=== PATIENT | female | born 1955 | race Caucasian/White ===

== ENCOUNTER 2022-04-09 01:14 | Emergency (ER) | payer MEDICARE ==
[2022-04-09] MEDS ORDERED: HYDROcodone/Acetaminophen 5/325 mg Tablet ONE (02:06)
[2022-04-09 02:17] LABS: #Eosinphils 0.1 10x3/uL (0.0-0.5); #Monocytes 0.6 10x3/uL (0.0-1.1); #Neutrophils 5.4 10x3/uL (1.5-8.4); %Basophils 0.5 % (0.0-2.0); %Eosinophils 0.8 % (0.0-6.0); %Lymphocytes 20.1 % (18.0-47.0); %Monocytes 7.3 % (0.0-10.0); Hemoglobin 10.1 g/dL (12.0-15.5); Mean Corpuscular HGB CONC 34.2 g/dL (32.0-36.0); Mean Corpuscular Hemoglobin 31.8 pg (27.0-33.0); Mean Corpuscular Volume 92.8 fl (81.6-98.3); Mean Platelet Volume 9.7 fl (7.4-10.4); Platelet Count 301 10x3/uL (150-450); RBC Distribution Width 12.7 % (11.5-14.5); Red Blood Cell (RBC) Count 3.18 10x6/uL (3.90-5.03); White Blood Cell (WBC) Count 7.5 10x3/uL (3.5-10.5)
[2022-04-09 02:34] LABS: ALT (SGPT) 17 U/L (8-55); AST (SGOT) 13 U/L (5-34); Albumin 3.4 g/dL (3.4-4.8); Alkaline Phosphatase 64 U/L (40-110); Anion Gap 13 mmol/L (10-20); BUN (Urea Nitrogen) 9 mg/dL (9.8-20.1); Bilirubin, Total 0.3 mg/dL (0.2-1.2); Calc. Creatinine Clearance 0 mL/min (70-130); Calcium 9.5 mg/dL (7.8-10.44); Carbon Dioxide 30 mmol/L (23-31); Chloride 99 mmol/L (98-107); Estimated GFR 78; Glucose 149 mg/dL (80-115); Potassium 3.1 mmol/L (3.5-5.1); Protein, Total 6.4 g/dL (5.8-8.1); Sodium 139 mmol/L (136-145)
== END 2022-04-09 05:06 | disposition home or self-care (01) ==
LOC: CSHERS 01:14
DX: M71.21 Synovial cyst of popliteal space [Baker], right knee (principal); J44.9 Chronic obstructive pulmonary disease, unspecified; I11.0 Hypertensive heart disease with heart failure; I50.9 Heart failure, unspecified; Z79.82 Long term (current) use of aspirin
CPT/HCPCS: 36415; 80053; 83880; 84145; 85025; 85652; 86140

== ENCOUNTER 2024-01-03 19:55 | Emergency (ER) | payer MEDICARE ==
[2024-01-03 21:51] LABS: #Basophils 0.01 10x3/uL (0.0-0.2); #Monocytes 0.23 10x3/uL (0.0-1.1); #Neutrophils 5.52 10x3/uL (1.5-8.4); %Basophils 0.1 % (0.0-2.0); %Monocytes 3.4 % (0.0-10.0); %Neutrophils 82.1 % (40.0-75.0); Hematocrit 33.6 % (34.9-44.5); Hemoglobin 11.1 g/dL (12.0-15.5); Mean Corpuscular Hemoglobin 30.7 pg (27.0-33.0); Mean Corpuscular Volume 93.1 fL (81.6-98.3); Mean Platelet Volume 9.9 fL (7.4-10.4); Platelet Count 254 10x3/uL (150-450); RBC Distribution Width 12.8 % (11.5-14.5); Red Blood Cell (RBC) Count 3.61 10x6/uL (3.90-5.03); White Blood Cell (WBC) Count 6.7 10x3/uL (3.5-10.5)
[2024-01-03 22:07] LABS: ALT (SGPT) 16 U/L (8-55); AST (SGOT) 13 U/L (5-34); Albumin 3.3 g/dL (3.4-4.8); Alkaline Phosphatase 46 U/L (40-110); Anion Gap 12 mmol/L (10-20); BUN (Urea Nitrogen) 15 mg/dL (9.8-20.1); Bilirubin, Total 0.3 mg/dL (0.2-1.2); Calc. Creatinine Clearance 0 mL/min (70-130); Calcium 9.4 mg/dL (7.8-10.44); Carbon Dioxide 28 mmol/L (23-31); Chloride 100 mmol/L (98-107); Estimated GFR 64; Globulin 2.8 g/dL (2.4-3.5); Glucose 106 mg/dL (80-115); Potassium 4.5 mmol/L (3.5-5.1); Protein, Total 6.1 g/dL (5.8-8.1); Sodium 135 mmol/L (136-145)
== END 2024-01-03 22:31 | disposition home or self-care (01) ==
LOC: CSHERS 19:55
DX: J44.89 Other specified chronic obstructive pulmonary disease (principal); I11.0 Hypertensive heart disease with heart failure; I50.9 Heart failure, unspecified
CPT/HCPCS: 36415; 71045; 80053; 85025; 87428

== ENCOUNTER 2024-02-06 10:00 | Emergency (ER) | payer MEDICAID, MEDICARE | END 2024-02-06 11:20 | disposition home or self-care (01) | LOC: CSHERS 10:00 | DX: B34.9 Viral infection, unspecified (principal); I11.0 Hypertensive heart disease with heart failure; I50.9 Heart failure, unspecified; J44.9 Chronic obstructive pulmonary disease, unspecified; Z55.0 Illiteracy and low-level literacy; Z79.82 Long term (current) use of aspirin | CPT/HCPCS: 71045; 93005 ==

== ENCOUNTER 2025-01-13 21:24 | Inpatient (IN) | payer OTHER, MEDICAID ==
[2025-01-13 22:45] LABS: Glucose, Urine (Dipstick) 50 mg/dL (Negative); Leukocyte Negative (Negative); Protein, Urine (Dipstick) 30 mg/dl (Neg-Trace); Specific Gravity, Urine 1.015 (1.005-1.030)
[2025-01-13 23:01] LABS: Bacteria/HPF Rare-Few HPF (None Seen); CAUTI Indications for Culture Pelvic or flank pain; RBC/HPF 0-3 HPF (0-3); WBC/HPF 0-3 HPF (0-3)
[2025-01-13 23:02] LABS: Mucous/LPF 1+ LPF (<2+)
[2025-01-13 23:02] LABS: #Basophils Less than 0.03 10x3/uL (0.0-0.2); #Eosinophils 0.10 10x3/uL (0.0-0.5); #Monocytes 1.05 10x3/uL (0.0-1.1); #Neutrophils 11.44 10x3/uL (1.5-8.4); %Basophils 0.1 % (0.0-2.0); %Eosinophils 0.7 % (0.0-6.0); %Lymphocytes 8.4 % (18.0-47.0); %Monocytes 7.6 % (0.0-10.0); %Neutrophils 82.8 % (40.0-75.0); Hematocrit 35.9 % (34.9-44.5); Hemoglobin 11.9 g/dL (12.0-15.5); Mean Corpuscular Hemoglobin 30.7 pg (27.0-33.0); Mean Corpuscular Volume 92.5 fL (81.6-98.3); Platelet Count 317 10x3/uL (150-450); Red Blood Cell (RBC) Count 3.88 10x6/uL (3.90-5.03); White Blood Cell (WBC) Count 13.82 10x3/uL (3.5-10.5)
[2025-01-13 23:03] LABS: Urine Culture Reflex No No
[2025-01-13] MEDS ORDERED: Droperidol 5 MG/2 ML VIAL ONE (23:11)
[2025-01-13 23:15] LABS: ALT (SGPT) 8 U/L (Less than 34); AST (SGOT) 25 U/L (11-34); Albumin 3.0 g/dL (3.1-4.5); Alkaline Phosphatase 81 U/L (40-110); Anion Gap 13 mmol/L (10-20); BUN (Urea Nitrogen) 12 mg/dL (9.8-20.1); Bilirubin, Total 0.6 mg/dL (0.3-1.2); Calc. Creatinine Clearance 0 mL/min (70-130); Calcium 8.9 mg/dL (7.8-10.44); Carbon Dioxide 26 mmol/L (23-31); Chloride 97 mmol/L (98-107); Globulin 3.5 g/dL (2.4-3.5); Glucose 164 mg/dL (80-115); Lipase 10 U/L (8-78); Potassium 4.3 mmol/L (3.5-5.1); Sodium 132 mmol/L (136-145)
[2025-01-14] MEDS ORDERED: Ondansetron PF 4 MG/2 ML Vial IVP PRN (01:10)
[2025-01-14] MEDS ORDERED: Albuterol 2.5 MG (3 mL) NEB NEB PRN (01:42)
[2025-01-14 01:46] VITALS: BMI 36.1
[2025-01-14] MEDS: 1/2 NS w/Potassium 20 mEq 1,000 ML IV SCH (03:34)
[2025-01-14 04:23] LABS: #Basophils Less than 0.03 10x3/uL (0.0-0.2); #Eosinophils 0.09 10x3/uL (0.0-0.5); #Monocytes 0.83 10x3/uL (0.0-1.1); #Neutrophils 7.31 10x3/uL (1.5-8.4); %Basophils 0.2 % (0.0-2.0); %Eosinophils 0.9 % (0.0-6.0); %Lymphocytes 15.2 % (18.0-47.0); %Monocytes 8.5 % (0.0-10.0); %Neutrophils 75.0 % (40.0-75.0); Hematocrit 34.1 % (34.9-44.5); Hemoglobin 11.4 g/dL (12.0-15.5); Mean Corpuscular Hemoglobin 31.2 pg (27.0-33.0); Mean Corpuscular Volume 93.4 fL (81.6-98.3); Platelet Count 277 10x3/uL (150-450); Red Blood Cell (RBC) Count 3.65 10x6/uL (3.90-5.03); White Blood Cell (WBC) Count 9.75 10x3/uL (3.5-10.5)
[2025-01-14 04:38] LABS: Anion Gap 12 mmol/L (10-20); BUN (Urea Nitrogen) 12 mg/dL (9.8-20.1); Calc. Creatinine Clearance 106 mL/min (70-130); Calcium 9.0 mg/dL (7.8-10.44); Carbon Dioxide 28 mmol/L (23-31); Chloride 101 mmol/L (98-107); Glucose 116 mg/dL (80-115); Magnesium 2.0 mg/dL (1.6-2.6); Potassium 4.7 mmol/L (3.5-5.1); Sodium 136 mmol/L (136-145)
[2025-01-14] MEDS: Enoxaparin 40 MG (0.4 mL) SYRINGE SC SCH (08:46)
[2025-01-14] MEDS: Droperidol 5 MG/2 ML VIAL SLOW IVP PRN (08:47)
[2025-01-14] MEDS: Metoprolol Tartrate 5 MG (5 mL) VIAL IVP SCH (08:49)
[2025-01-14] MEDS: Furosemide 20 MG (2 mL) VIAL SLOW IVP SCH (10:20)
[2025-01-15 08:29] LABS: #Basophils Less than 0.03 10x3/uL (0.0-0.2); #Eosinophils 0.17 10x3/uL (0.0-0.5); #Monocytes 0.59 10x3/uL (0.0-1.1); #Neutrophils 4.32 10x3/uL (1.5-8.4); %Basophils 0.2 % (0.0-2.0); %Eosinophils 2.6 % (0.0-6.0); %Lymphocytes 22.5 % (18.0-47.0); %Monocytes 9.0 % (0.0-10.0); %Neutrophils 65.5 % (40.0-75.0); Hematocrit 33.8 % (34.9-44.5); Hemoglobin 11.2 g/dL (12.0-15.5); Mean Corpuscular Hemoglobin 31.1 pg (27.0-33.0); Mean Corpuscular Volume 93.9 fL (81.6-98.3); Platelet Count 264 10x3/uL (150-450); Red Blood Cell (RBC) Count 3.60 10x6/uL (3.90-5.03); White Blood Cell (WBC) Count 6.58 10x3/uL (3.5-10.5)
[2025-01-15 08:49] LABS: Anion Gap 13 mmol/L (10-20); BUN (Urea Nitrogen) 12 mg/dL (9.8-20.1); Calc. Creatinine Clearance 90 mL/min (70-130); Calcium 9.1 mg/dL (7.8-10.44); Carbon Dioxide 28 mmol/L (23-31); Chloride 100 mmol/L (98-107); Glucose 80 mg/dL (80-115); Potassium 4.3 mmol/L (3.5-5.1); Sodium 137 mmol/L (136-145)
[2025-01-15] MEDS: Furosemide 20 MG (2 mL) VIAL SLOW IVP SCH (08:57)
[2025-01-15] MEDS ORDERED: clonazePAM 1 MG TAB PO PRN (13:39)
[2025-01-15] MEDS: Baclofen 10 MG TAB PO SCH (14:41)
[2025-01-15] MEDS: Pantoprazole 40 MG DR.TAB PO SCH (16:07)
[2025-01-15] MEDS: FLU (Fluad Triv) 25-26 (65UP)PF 45 MCG/0.5 ML Syringe IM ONE (19:41)
[2025-01-15] MEDS: Rosuvastatin 10 MG TAB PO SCH (20:29)
[2025-01-15] MEDS: Acetaminophen 500 MG TAB PO SCH (20:29)
[2025-01-15] MEDS: Ziprasidone 20 MG CAP PO SCH (20:30)
[2025-01-16] MEDS: Ferrous Sulfate 325 MG TAB PO SCH (09:39)
[2025-01-16 09:49] VITALS: BP 147/87; TEMP 98
== END 2025-01-16 10:56 | disposition home or self-care (01) | DRG 392 ==
LOC: CSHERS 21:24 → CSHTELE 01-14 01:10
PROVIDERS: ADMIT Family Medicine; ATTEND Internal Medicine
DX: K57.20 Diverticulitis of large intestine with perforation and abscess without bleeding (principal); K56.609 Unspecified intestinal obstruction, unspecified as to partial versus complete obstruction; K56.7 Ileus, unspecified; F41.9 Anxiety disorder, unspecified; F31.9 Bipolar disorder, unspecified; I10 Essential (primary) hypertension; J44.9 Chronic obstructive pulmonary disease, unspecified; G47.33 Obstructive sleep apnea (adult) (pediatric); K21.9 Gastro-esophageal reflux disease without esophagitis; Z79.899 Other long term (current) drug therapy; Z98.890 Other specified postprocedural states; Z90.49 Acquired absence of other specified parts of digestive tract; F41.1 Generalized anxiety disorder; R73.9 Hyperglycemia, unspecified; Z88.5 Allergy status to narcotic agent; E88.09 Other disorders of plasma-protein metabolism, not elsewhere classified; Z79.82 Long term (current) use of aspirin
CPT/HCPCS: 36415; 36416; 71045; 74176; 80048; 80053; 81001; 83605; 83690; 83735; 85025; 87040; 87428; 93005; 93970; 96361; 96374; 96375; J1650; J1790; J1940; J2060; J2543; J2550; J3010; J3480; J3486